=== PATIENT | male | born 1960 | race Caucasian/White ===

== ENCOUNTER 2019-03-23 09:15 | Day surgery (SDC) | payer OTHER ==
[2019-03-19 10:44] VITALS: BMI 23.6
[~2019-03-23 09:15] MED LIST: LACTATED RINGERS 1,000 ML IV SCH; LIDOCAINE 1% 20 ML VIAL (10MG/ML) FOR IV START INTRADERMA PRN
[2019-03-23 09:37] VITALS: TEMP 98.2
[2019-03-23] MEDS ORDERED: PROPOFOL 10 MG/ML 20 ML VIAL IV ONE (10:52)
[2019-03-23 11:26] VITALS: RESP 16
--- NOTE | 2019-03-23 11:28 | P.PCN ---
Date of Procedure: 03/23/19 Procedure(s) Performed: Procedure: Colonoscopy. Preoperative diagnosis: Screening for neoplasia, patient has family history of colon cancer. history of polyps. Postoperative diagnosis: Examination within normal limits. Preparation: HalfLytely prep. Sedation: Was provided by anesthesia. Brief clinical history: The patient is a 58-year-old male who is scheduled for this evaluation for screening for neoplasia because of family history of colon cancer in his brothers. His last colonoscopy was in 2013. The patient has no abdominal complaints, bleeding or anemia. Procedure: With the patient on his left lateral decubitus position and after informed consent and adequate sedation, the perianal area was inspected and it did not show any fissures or fistulas. There were no masses felt on digital rectal examination. The Olympus CFH 190L video colonoscope was then inserted in the rectum in the usual fashion and advanced to the cecum. The mucosa appeared healthy. No polyps or tumors were seen or any obvious diverticular disease or other pathology. I retroflexed endoscope in the rectum before the endoscope was withdrawn. Prominent anal papillae were noted but there was no other pathology or bleeding. The patient tolerated the procedure well. Plan: The patient was reassured. He will follow up with you as planned and I recommended repeat exam in 5 years.
[2019-03-23 12:21] VITALS: BP 116/88; PULSE 66
== END 2019-03-23 12:00 | disposition home or self-care (01) ==
LOC: ORWHC2ENDO 09:15
DX: Z12.11 Encounter for screening for malignant neoplasm of colon (principal); Z86.010 Personal history of colon polyps; Z80.0 Family history of malignant neoplasm of digestive organs; I10 Essential (primary) hypertension; E78.5 Hyperlipidemia, unspecified; I25.10 Atherosclerotic heart disease of native coronary artery without angina pectoris; I25.2 Old myocardial infarction; E07.9 Disorder of thyroid, unspecified; Z95.5 Presence of coronary angioplasty implant and graft; Z79.02 Long term (current) use of antithrombotics/antiplatelets; Z79.82 Long term (current) use of aspirin; Z79.890 Hormone replacement therapy; Z79.899 Other long term (current) drug therapy
CPT/HCPCS: J2704; G0105

== ENCOUNTER → 2020-07-07 | Outpatient (CLI) | payer OTHER ==
--- NOTE | 2020-07-07 12:38 | XR ---
EXAMINATION TYPE: XR lumbosacral spine min 4V DATE OF EXAM: 07/07/2020 COMPARISON: NONE HISTORY: 59-year-old male [id number], low back pain TECHNIQUE: 5 views FINDINGS: Multilevel degenerative disc disease. Hypertrophic facet arthropathy throughout with a grade 1 cherrie listhesis at L3-L4. Vertebral body heights are preserved. No pars interarticularis defect. IMPRESSION: 1. Hypertrophic facet arthropathy throughout with a degenerative grade 1 anterolisthesis at L3-L4. 2. Mild degenerative disc disease. 3. No vertebral compression collapse.
== END | disposition home or self-care (01) ==
LOC: RADXRYALE 11:41
PROVIDERS: ATTEND Physician Assistant Medical
DX: M43.16 Spondylolisthesis, lumbar region (principal); M47.896 Other spondylosis, lumbar region; M51.36 Other intervertebral disc degeneration, lumbar region
CPT/HCPCS: 72110